=== PATIENT | female | born 1955 | race Caucasian/White ===

== ENCOUNTER 2022-12-08 01:01 | Day surgery (SDC) | payer MEDICARE, SELFPAY ==
[2022-11-30 12:33] VITALS: BMI 34.3
[2022-12-08 08:22] VITALS: BP 151/64; PULSE 78; RESP 20; TEMP 36.4; O2SAT 99; BMI 34.1
[2022-12-08] MEDS: LACTATED RINGERS 1,000 ML 150 ML IV CONT (08:28)
--- NOTE | 2022-12-08 09:02 | P.HP_ITS ---
History of Present Illness History of Present Illness Consent: Risks, benefits, and alternatives have been discussed and questions answered. Patient agrees to proceed with procedure. Chief complaint: positive cologuard Narrative: Pamela Brown is a 67 year old female Presents for colonoscopy. Patient recently found to have positive screening Cologuard test. Patient reports that her weight appetite and bowel movements are normal. Patient denies abdominal pain. She has had no bleeding. Family history is noncontributory. Review of Systems Review of Systems: Review of systems noncontributory. [facility] Social History Social History Smoking status: Never smoker Alcohol intake: never Substance use type: does not use Living arrangements: with family Spiritual care concerns: No Meds Home Medications and Allergies Home Medications Medication Instructions Recorded Confirmed Type amlodipine 10 mg tablet mg 11/30/22 History ezetimibe 10 mg tablet 10 mg DAILY 11/30/22 11/30/22 History latanoprost 0.005 % eye drops 1 drp HS 11/30/22 11/30/22 History levothyroxine 25 mcg tablet 25 mcg DAILY 11/30/22 11/30/22 History losartan 100 25 tablet DAILY 11/30/22 11/30/22 History mg-hydrochlorothiazide 25 mg tablet Allergies Allergy/AdvReac Type Severity Reaction Status Date / Time No Known Allergies Allergy Verified 12/08/22 08:20 Vital Signs Vital Signs - 24 hr 12/08/22 08:22 Temperature 97.5 F L Pulse Rate 78 Respiratory Rate 20 Blood Pressure 151/64 H Pulse Oximetry 99 Oxygen Delivery Room Air Exam Narrative: Physical exam reveals patient to be alert. Vital signs stable. HEENT exam is unremarkable. Patient is anicteric. Lungs are clear to auscultation and percussion. Heart is without murmur or extra sounds. Abdomen bowel sounds are present soft nontender with no organomegaly. Digital external rectal exam is normal. Assessment and Plan Assessment and plan (1) Positive colorectal cancer screening using Cologuard test: Code(s): R19.5 - Other fecal abnormalities Status: Acute Assessment and Plan: Patient screening Cologuard test was positive. For this reason colonoscopy will be performed.
--- NOTE | 2022-12-08 09:25 | P.PNAN_ITS ---
Anes - Initial Pre Proc Eval Procedure: Operation Date: 12/08/22 09:30 Proposed Procedures p Colonoscopy - Erwin Zelaya MD Date/Time: 12/08/22 09:25 Surgeon: Erwin Zelaya MD Pre Op Diagnosis: positive cologuard Patient Data Age: 67 Gender: F Height: 1.63 m Weight: 90.2 kg Last Vital Signs Temp 97.5 F L 12/08/22 08:22 Pulse 78 12/08/22 08:22 Resp 20 12/08/22 08:22 BP 151/64 H 12/08/22 08:22 Pulse Ox 99 12/08/22 08:22 O2 Del Method Room Air 12/08/22 08:22 Allergies Allergy/AdvReac Type Severity Reaction Status Date / Time No Known Allergies Allergy Verified 12/08/22 08:20 Home Medications Medication Instructions Recorded Confirmed Type amlodipine 10 mg tablet mg 11/30/22 History ezetimibe 10 mg tablet 10 mg DAILY 11/30/22 11/30/22 History latanoprost 0.005 % eye drops 1 drp HS 11/30/22 11/30/22 History levothyroxine 25 mcg tablet 25 mcg DAILY 11/30/22 11/30/22 History losartan 100 25 tablet DAILY 11/30/22 11/30/22 History mg-hydrochlorothiazide 25 mg tablet Patient hx anesthesia problems: none Family hx anesthesia problems: none Results Review: All pre-operative results and documents have been reviewed as part of the pre- operative evaluation. PMF Social History Social History Smoking status: Never smoker Alcohol intake: never Substance use type: does not use Living arrangements: with family Spiritual care concerns: No Anes - Eval Final PreProcedure Day of Procedure 12/08/22 09:25 Patient weight: obese Heart: regular rate and rhythm Lungs: clear to auscultation Airway: Mallampati scale class III Neurological: alert and oriented Last oral intake: >/= 8 hours ASA classification: III Emergent: no Anesthetic plan: proceed Anesthesia type and monitoring: general GIVS and standard monitoring Results Review: All pre-operative results and documents have been reviewed as part of the pre- operative evaluation. Informed Consent: The patient's anesthetic plan and its attendant risks and benefits were discussed with the patient/family/POA. Questions were solicited and answers provided to the satisfaction of the patient/family/POA.
[2022-12-08 09:54] VITALS: BP 127/75; PULSE 71; RESP 24; O2SAT 100
[2022-12-08 10:04] VITALS: BP 139/82; PULSE 69; RESP 18; O2SAT 100
[2022-12-08 10:14] VITALS: BP 140/79; PULSE 66; RESP 14; O2SAT 100
== END 2022-12-08 10:26 | disposition home or self-care (01) ==
PROVIDERS: PCP Family Medicine; Visit Provider Internal Medicine Gastroenterology
PROC: 0DJD8ZZ Inspection of Lower Intestinal Tract, Via Natural or Artificial Opening Endoscopic (ICD-10-PCS; CPT 45378; principal; 2022-12-08 09:30)
DX: R19.5 Other fecal abnormalities (principal); K63.5 Polyp of colon; K64.8 Other hemorrhoids; K57.30 Diverticulosis of large intestine without perforation or abscess without bleeding; E66.9 Obesity, unspecified; Z68.34 Body mass index [BMI] 34.0-34.9, adult
CPT/HCPCS: 45385; 88305; J2704; J7120